=== PATIENT | male | born 1995 | race Caucasian/White ===

== ENCOUNTER 2021-12-23 13:23 | Inpatient (IN) | payer SELFPAY ==
[2021-12-23 13:40] VITALS: BP 126/82; PULSE 121; RESP 18; TEMP 38.6; O2SAT 99; BMI 31.4
--- NOTE | 2021-12-23 14:24 | XR_ITS ---
WS: [id number] Portable AP upright chest, 12/23/2021 Clinical Data: sob Comparison: Portable chest, 08/27/2015. Findings: No nodules, masses or effusions are seen. The heart is normal. The pulmonary vascularity is not increased. No pneumonia or pneumothorax is seen. Monitor leads are on the chest wall. XR/XR chest 1V portable [id number] Impression: Negative chest.
--- NOTE | 2021-12-23 14:24 | CTR_ITS ---
PROCEDURE INFORMATION: Exam: CT Head Without Contrast Exam date and time: 12/23/2021 3:45 PM Age: 26 years old Clinical indication: Pain; Headache not specified; Additional info: LIN TECHNIQUE: Imaging protocol: Computed tomography of the head without contrast. Radiation optimization: All CT scans at this facility use at least one of these dose optimization techniques: automated exposure control; mA and/or kV adjustment per patient size (includes targeted exams where dose is matched to clinical indication); or iterative reconstruction. COMPARISON: CT neck w con* [id number] 08/27/2015 8:24 PM RADIATION DOSE METRICS: Total DLP (mGy-cm): 964.84 FINDINGS: Brain: Normal. No hemorrhage. Unremarkable white matter. No mass effect. Cerebral ventricles: No ventriculomegaly. Paranasal sinuses: Fluid level in the right maxillary sinus. Mild mucosal thickening of the left maxillary sinus. Mastoid air cells: Visualized mastoid air cells are well aerated. Bones/joints: Unremarkable. No acute fracture. Soft tissues: Unremarkable. CT/CT head wo con* [id number] IMPRESSION: 1. No acute intracranial abnormality. 2. Right maxillary sinusitis.
--- NOTE | 2021-12-23 14:25 | ED_ITS ---
HPI - Headache General: Chief Complaint: Headache Stated Complaint: Headaches, hallucinations Time Seen by Provider: 12/23/21 14:19 History of Present Illness: 26-year-old male presents due to headache rash and shortness of breath. States is been ongoing for 6 to 7 days. States he has a diffuse red rash over his entire body. Also states that he has swollen lymph nodes on his neck. Is febrile in triage to 101. Denies any chest pain. States headache is diffuse. Denies any head trauma or blood tenderness. Denies any neck pain. Denies any focal numbness weakness tingling vision or hearing change. Denies any drug use. Review of Systems Narrative: - CONSTITUTIONAL: Denies weight loss, fever and chills. - HEENT: Denies changes in vision and hearing. - RESPIRATORY: As above - CV: Denies palpitations and CP. - GI: Denies abdominal pain, nausea, vomiting and diarrhea. - : Denies dysuria and urinary frequency. - MSK: Denies myalgia and joint pain. - SKIN: As above - NEUROLOGICAL: As above - PSYCHIATRIC: Denies suicidal ideation Physical Exam Narrative: EXAM NARRATIVE: - GENERAL: Alert and oriented x 3. No acute distress. Well-nourished. - EYES: EOMI. Anicteric. - HENT: Atraumatic, no C-spine tenderness. Moist mucous membranes. No scleral icterus. No cervical lymphadenopathy. - LUNGS: Clear to auscultation bilaterally. No accessory muscle use. Equal lung sounds bilaterally. No respiratory distress. - CARDIOVASCULAR: Regular rate and rhythm. No murmur. No JVD. - ABDOMEN: Soft, non-tender and non-distended. Negative CVA tenderness bilaterally, no rebound or guarding, negative Emmanuel sign. No palpable masses. - EXTREMITIES: No edema. Non-tender. - SKIN: Diffuse sandpaperlike rash. No petechiae. - NEUROLOGIC: No meningismus or focal neurological deficits. CN II-XII grossly intact. - PSYCHIATRIC: Cooperative. Appropriate mood and affect. Course Vital Signs: Vital signs: Vital Signs Temperature 101.4 F H 12/23/21 13:40 Pulse Rate 121 H 12/23/21 13:40 Respiratory Rate 18 12/23/21 13:40 Blood Pressure 126/82 12/23/21 13:40 Pulse Oximetry 99 12/23/21 13:40 [facility] - Headache Medical Decision Making 26-year-old presents due to headache shortness of breath and diffuse sand paperlike rash. There is no mucous membrane involvement. There is no meningismus. The rash is Nikolsky negative. Has mild white count elevation of 12. He is febrile to 101 and initially tachycardic to 120s but improved with fluids and Tylenol. CT scan does not reveal any cranial hemorrhage. EKG does not reveal any sign of acute ischemia but initial high-sensitivity troponin is elevated to 108. Aspirin provided. Suspect viral myocarditis. However patient is hemodynamically stable afebrile nontoxic-appearing. Discussed with hospitalist given that he has had symptoms for 1 week probability of meningitis is very low. Will send for blood cultures but will hold off on antibiotics at this time. X-ray does not reveal pneumothorax or consolidation. D-dimer is elevated and CT of the chest is currently pending. Remainder of lab work and imaging reviewed. Discussed with hospitalist and they agreed patient would benefit from admission. Patient admitted in stable condition. Further evaluation management per hospitalist team. Lab Data : 12/23/21 15:20 12/23/21 15:20 Radiology Impressions Chest X-Ray 12/23/21 14:24 Impression: Negative chest. Head CT 12/23/21 14:24 IMPRESSION: 1. No acute intracranial abnormality. 2. Right maxillary sinusitis. Laboratory Results WBC 12.6 10^3/uL (4.0-10.0) H 12/23/21 15:20 RBC 4.66 10^6/uL (4.1-5.3) 12/23/21 15:20 Hgb 13.1 g/dL (11.7-16.6) 12/23/21 15:20 Hct 38.4 % (42.0-52.0) L 12/23/21 15:20 MCV 82.4 fl (80-94) 12/23/21 15:20 MCH 28.1 pg (28.0-34.0) 12/23/21 15:20 MCHC 34.1 g/dL (30.0-36.0) 12/23/21 15:20 RDW 12.0 % (12.1-15.1) L 12/23/21 15:20 Plt Count 242 10^3/cmm (130-400) 12/23/21 15:20 MPV 10.3 fL (7.4-10.4) 12/23/21 15:20 Neut % (Auto) 64.6 % 12/23/21 15:20 Lymph % (Auto) 11.1 % 12/23/21 15:20 [place] % (Auto) 9.1 % 12/23/21 15:20 Eos % (Auto) 14.2 % 12/23/21 15:20 Baso % (Auto) 0.2 % 12/23/21 15:20 Neut # (Auto) 8.14 10^3/uL (1.8-7.7) H 12/23/21 15:20 Lymph # (Auto) 1.4 10^3/uL (0.8-4.8) 12/23/21 15:20 [place] # (Auto) 1.1 10^3/uL (0.2-0.9) H 12/23/21 15:20 Eos # (Auto) 1.8 10^3/uL (0.0-0.8) H 12/23/21 15:20 Baso # (Auto) 0.0 10^3/uL (0.0-0.1) 12/23/21 15:20 Nucleated RBC % (auto) 0 % 12/23/21 15: Nucleated RBCs # 0.0 /100WBC 12/23/21 15:20 D-Dimer 0.81 ug/mIFEU (0-0.59) H 12/23/21 16:24 Sodium 134 mmol/L (136-145) L 12/23/21 15:20 Potassium 3.4 mmol/L (3.5-5.1) L 12/23/21 15:20 Chloride 99 mmol/L (98-107) 12/23/21 15:20 Carbon Dioxide 22 mmol/L (22-29) 12/23/21 15:20 Anion Gap 16.4 (5-19) 12/23/21 15:20 BUN 13 mg/dL (6-20) 12/23/21 15:20 Creatinine 1.0 mg/dL (0.7-1.2) 12/23/21 15:20 GFR Calculation 91.0 mL/min (90-130) 12/23/21 15:20 Glucose 99 mg/dL (65-115) 12/23/21 15:20 Calculated Osmolality 278 mOsm/kg (285-295) L 12/23/21 15:20 Calcium 7.6 mg/dL (8.5-10.5) L 12/23/21 15:20 Total Bilirubin 0.4 mg/dL (0.15-1.2) 12/23/21 15:20 AST 15 U/L (0-40) 12/23/21 15:20 ALT 17 U/L (0-41) 12/23/21 15:20 Alkaline Phosphatase 68 IU/L (40-130) 12/23/21 15:20 Troponin T Baseline 108 ng/L (0-15) H* 12/23/21 15:20 Total Protein 7.3 g/dL (6.6-8.7) 12/23/21 15:20 Albumin 3.9 g/dL (3.5-5.2) 12/23/21 15:20 Globulin 3.4 g/dL (1.3-4.6) 12/23/21 15:20 Urine Color Dark yellow (Yellow) 12/23/21 15:14 Urine Appearance Clear (CLEAR) 12/23/21 15:14 Urine pH 5 (5-7) 12/23/21 15:14 Ur Specific [place] 1.025 (1.005-1.030) 12/23/21 15:14 Urine Protein Trace (Negative) 12/23/21 15:14 Urine Glucose (UA) Norm (Normal) 12/23/21 15:14 Urine Ketones Negative (Negative) 12/23/21 15:14 Urine Blood Neg (Negative) 12/23/21 15:14 Urine Nitrate Negative (Negative) 12/23/21 15:14 Urine Bilirubin Neg (Negative) 12/23/21 15:14 Urine Urobilinogen Norm mg/dL (Negative) 12/23/21 15:14 Ur Leukocyte Esterase Negative (Negative) 12/23/21 15:14 Urine RBC 0-4 /hpf (0-2) H 12/23/21 15:14 Urine WBC Rare /hpf (0-5) 12/23/21 15:14 Ur Squamous Epith Cells 0-4 /hpf (0-5) H 12/23/21 15:14 Amorphous Sediment Not Reportable 12/23/21 15:14 Urine Bacteria 1+ /hpf (NONE) H 12/23/21 15:14 Urine Mucus 1+ /hpf 12/23/21 15:14 Urine Sperm 1+ /hpf 12/23/21 15:14 Urine Opiates Screen Negative ng/mL (Negative) 12/23/21 15:14 Ur Barbiturates Screen Negative ng/mL (Negative) 12/23/21 15:14 Ur Phencyclidine Scrn Negative ng/mL (Negative) 12/23/21 15:14 Ur Amphetamines Screen Negative ng/mL (Negative) 12/23/21 15:14 U Benzodiazepines Scrn Negative ng/mL (Negative) 12/23/21 15:14 Urine Cocaine Screen Negative ng/mL (Negative) 12/23/21 15:14 U Marijuana (THC) Screen Positive ng/mL (Negative) H 12/23/21 15:14 Rubella IgG Antibody > 500.0 IU/mL (0.0-10.0) H 12/23/21 15:20 SARS-CoV-2 Ag (Rapid) Negative (Negative) 12/23/21 15:40 EKG Data EKG 1: Other EKG comments: Sinus tachycardia, rate of 102, no sign of acute ischemia or other acute abnormality. Discharge Plan Discharge Condition: Stable Prescriptions: No Action allopurinol 300 mg Tablet 300 mg PO DAILY 0RF Coding Level of Care Code ED Mold Sheet Cleaner for Tamika Gandara
--- NOTE | 2021-12-23 14:25 | ECG_ITS ---
[facility] Test Date: 2021-12-23 Pat Name: Rio Monk Department: Room: Gender: Male Director Online Marketing: YUMIKO: 1995 Requested By: Ladarius De La Garza Order Number: [id number] Osmany MD: Lizzy Contreras M.D. Measurements Intervals [place] Rate: 102 P: 63 RI: 143 QRS: 77 QRSD: 96 T: 43 QT: 339 QTc: 443 Interpretive Statements SINUS TACHYCARDIA ABNORMAL RHYTHM ECG No previous ECG available for comparison Electronically Signed On 12-23-2021 18:21:27 CDT by Lizzy Contreras M.D. [id number]
[2021-12-23] MEDS: acetaminophen 500 mg Tablet PO (14:58)
--- NOTE | 2021-12-23 15:28 | PC.NURSE ---
continuous cardiac, BP, and SpO2 monitoring initiated upon arrival into room.
[2021-12-23 15:35] LABS: Basophils % 0.2 %; Eosinophils # 1.8 10^3/uL (0.0-0.8); Eosinophils % 14.2 %; Hematocrit 38.4 % (42.0-52.0); Hemoglobin 13.1 g/dL (11.7-16.6); Lymphocytes # 1.4 10^3/uL (0.8-4.8); Lymphocytes % 11.1 %; Mean Corpuscular HGB Conc 34.1 g/dL (30.0-36.0); Mean Corpuscular Hemoglobin 28.1 pg (28.0-34.0); Mean Corpuscular Volume 82.4 fl (80-94); Mean Platelet Volume 10.3 fL (7.4-10.4); Monocytes # 1.1 10^3/uL (0.2-0.9); Monocytes % 9.1 %; Neutrophils # 8.14 10^3/uL (1.8-7.7); Neutrophils % 64.6 %; Nucleated Red Blood Cells % 0 %; Platelet Count 242 10^3/cmm (130-400); Red Blood Count 4.66 10^6/uL (4.1-5.3); White Blood Count 12.6 10^3/uL (4.0-10.0)
[2021-12-23 15:57] LABS: Bacteria Urine 1+ /hpf; Bilirubin Urine Neg (Negative); Blood Urine Neg (Negative); Glucose Urine UA Norm (Normal); Ketones Urine Negative (Negative); Leukocyte Esterase Urine Negative (Negative); Mucus Urine 1+ /hpf; Nitrate Urine Negative (Negative); Protein Urine Trace (Negative); RBC Urine 0-4 /hpf (0-2); Specific Gravity, Urine 1.025 (1.005-1.030); Sperm Urine 1+ /hpf; Squamous Epithelial Cell Urine 0-4 /hpf (0-5); Urine Appearance Clear (CLEAR); Urine Color Dark Yellow (Yellow); Urobilinogen Urine Norm (Negative); WBC Urine RARE /hpf (0-5); pH Urine 5 (5-7)
[2021-12-23 16:01] LABS: Alanine Aminotransferase 17 U/L (0-41); Albumin Level 3.9 g/dL (3.5-5.2); Alkaline Phosphatase 68 IU/L (40-130); Anion Gap 16.4 (5-19); Aspartate Amino Transferase 15 U/L (0-40); Blood Urea Nitrogen 13 mg/dL (6-20); Calcium 7.6 mg/dL (8.5-10.5); Carbon Dioxide 22 mmol/L (22-29); Chloride 99 mmol/L (98-107); Globulin 3.4 g/dL (1.3-4.6); Glucose 99 mg/dL (65-115); Osmolality Calculated 278 mOsm/kg (285-295); Potassium 3.4 mmol/L (3.5-5.1); Sodium 134 mmol/L (136-145); Total Bilirubin 0.4 mg/dL (0.15-1.2); Total Protein 7.3 g/dL (6.6-8.7)
[2021-12-23 16:02] LABS: Troponin(5th) Baseline 108 ng/L (0-15)
[2021-12-23 16:05] LABS: Amphetamines Screen Urine Negative (Negative); Barbiturates Screen Urine Negative (Negative); Benzodiazepines Screen Urine Negative (Negative); Cocaine Screen Urine Negative (Negative); Opiate Screen Urine Negative (Negative); PCP Screen Urine Negative (Negative); THC Screen Urine Positive (Negative)
[2021-12-23] MEDS: sodium chloride 0.9% 1,000 ML 999 ML IV ×2 (16:08→18:13)
[2021-12-23 16:09] LABS: Rubella IgG > 500.0 IU/mL (0.0-10.0); Slide Review Slide Review Perform
[2021-12-23 16:10] LABS: SARS Covid-2 Antigen Negative (Negative)
[2021-12-23 16:57] LABS: D Dimer 0.81 ug/mIFEU (0-0.59)
[2021-12-23] MEDS: aspirin 81 mg Chew Tablet 324 MG PO (17:02)
--- NOTE | 2021-12-23 17:17 | CTR_ITS ---
PROCEDURE INFORMATION: Exam: CTA Chest With Contrast Exam date and time: 12/23/2021 6:03 PM Age: 26 years old Clinical indication: Abnormal findings; Abnormal diagnostic tests; Elevated d-dimer; Patient HX: Chest discomfort w elev d-dimer; Additional info: Pe TECHNIQUE: Imaging protocol: Computed tomographic angiography of the chest with contrast. 3D rendering (Not supervised by radiologist): MIP and/or 3D reconstructed images were created by the technologist. Radiation optimization: All CT scans at this facility use at least one of these dose optimization techniques: automated exposure control; mA and/or kV adjustment per patient size (includes targeted exams where dose is matched to clinical indication); or iterative reconstruction. Contrast material: OMNI 350; Contrast volume: 72 ml; Contrast route: INTRAVENOUS (IV); COMPARISON: CR XR chest 1V portable [id number] 12/23/2021 2:34 PM RADIATION DOSE METRICS: Total DLP (mGy-cm): 647.11 FINDINGS: Pulmonary arteries: Normal. No pulmonary emboli. Aorta: Unremarkable. No aortic aneurysm. No aortic dissection. Lungs: Scattered solid pulmonary nodules noted within both lungs, the largest pleural based nodule in the right lung in the right lower lobe measures 1.2 cm in length series 2, image 330. The largest nodule in the left lung in the left lower lobe measures 8 mm in size series 2, image 337. One of the nodules demonstrates surrounding halo of ground-glass opacity in the right lung apex series 2 image 117. Pleural spaces: Unremarkable. No pneumothorax. No pleural effusion. Heart: Unremarkable. No cardiomegaly. No pericardial effusion. Lymph nodes: Diffuse mediastinal, hilar, and axillary adenopathy. Spleen: Splenomegaly measuring nearly 17 cm in length. Bones/joints: Unremarkable. No acute fracture. Soft tissues: Unremarkable. CT/CT angio chest PE protcl [id number] IMPRESSION: 1. Negative for pulmonary embolism. 2. Scattered solid pulmonary nodules in both lungs measuring up to 1.2 cm on the right and 8 mm on the left. There is also diffuse mediastinal, hilar, and axillary adenopathy as well as splenomegaly. There is a broad range of potential etiologies for the above findings. Categorically the most likely etiologies include a lymphoproliferative process such as lymphoma/leukemia, sequela of granulomatous disease such as sarcoidosis, or an autoimmune process. An additional consideration is infectious mononucleosis which can present with lymphadenopathy and splenomegaly given findings of fever and tonsillitis.
[2021-12-23 17:24] VITALS: PULSE 108; RESP 20; O2SAT 99
--- NOTE | 2021-12-23 18:00 | USCV_ITS ---
Rio Monk Age: 26 Gender: M : 1995 Exam Date: 12/23/2021 23:13 Ordering Phys: Vijay Arias MD Technologist: Puneet Armstrong Exam Location: [facility] Indication: elevated troponin BP: 131 / 71 HR: 103 Rhythm: Sinus Technical Quality: Adequate MEASUREMENTS (Male / Female) Normal Values 2D ECHO LV Diastolic Diameter PLAX 4.3 cm 4.2 - 5.9 / 3.9 - 5.3 cm LV Systolic Diameter PLAX 2.7 cm IVS Diastolic Thickness 1.5 cm 0.6 - 1.0 / 0.6 - 0.9 cm IVS Systolic Thickness 2.0 cm LVPW Diastolic Thickness 2.4 cm 0.6 - 1.0 / 0.6 - 0.9 cm LVPW Systolic Thickness 2.2 cm LVOT Diameter 2.0 cm LV Ejection Fraction 2D Teich 67.9 % LV Ejection Fraction MOD 2C 61.4 % LV Ejection Fraction 2C AL 63.9 % LA Diameter 3.5 cm LA Width 4.3 cm LA Height 3.8 cm RA Width 3.3 cm RA Height 4.1 cm Aorta at Sinotubular Diameter 2.3 cm M-MODE Aortic Annulus Diameter 2.7 cm LA Ao Ratio MM 1.4 MV E Point Septal Separation 0.6 cm DOPPLER AV Peak Velocity 136.0 cm/s LVOT Peak Velocity 117.5 cm/s AV Area Cont Eq vti 2.6 cm squared AV Area Cont Eq pk 2.8 cm squared MV Area PHT 3.9 cm squared Mitral E to A Ratio 1.0 MV E' Velocity 45.0 cm/s Mitral E to MV E' Ratio 5.1 Mitral E to LV E' Lateral Ratio 5.3 Mitral E to LV E' Septal Ratio 4.9 Right Atrial Pressure 3.0 mmHg PV Peak Velocity 119.0 cm/s FINDINGS Left Ventricle Normal left ventricular size, systolic function and wall thickness, with no regional wall motion abnormalities. Left ventricular ejection fraction is estimated at 60 %. Normal diastolic function. Right Ventricle Normal right ventricular size and systolic function. RVSP could not be calculated due to incomplete tricuspid regurgitation velocity profile. Right Atrium Normal right atrial size. Right atrial pressure estimated at 3 mmHg. Left Atrium Normal left atrial size. Mitral Valve Structurally normal mitral valve. No mitral valve stenosis. No mitral valve regurgitation. Aortic Valve Aortic valve not well visualized. Probably trileaflet aortic valve. No aortic valve stenosis. No aortic valve regurgitation. Tricuspid Valve Structurally normal tricuspid valve. Trace tricuspid valve regurgitation. Pulmonic Valve Pulmonic valve not well visualized. No pulmonary valve stenosis. Pericardium No pericardial effusion. Aorta Normal-sized aortic root. Normal-sized inferior vena cava. CONCLUSIONS 1. Normal left ventricular size, systolic function and wall thickness, with no regional wall motion abnormalities. Left ventricular ejection fraction is estimated at 60 %. Normal diastolic function. 2. Normal right ventricular size and systolic function. 3. No significant valvular abnormality. 4. No prior similar studies to compare. Arlette Huff MD (Electronically Signed) Final Date: 24 December 2021 14:09 S
--- NOTE | 2021-12-23 18:02 | P.HP_ITS ---
Providers/Chief Complaint Chief Complaint: Headaches, hallucinations History of Present Illness Rio Monk is a 26 year old male with past medical history of gout came in with chief complaint of worsening headache, started a week back, described the headache as sharp starting from the back of the head, shooting down the neck, lately he also started experiencing nausea, no vomiting, in the last 2 days he has also developed generalized erythematous macular rash, all over the body Which is itchy, in ER his T-max was also at 101.4, denies any shortness of breath cough, abdominal pain, urinary discomfort. Patient denies any drug use, does smoke marijuana, no tobacco's use, no alcohol use Upon arrival in the ER he was worked up for above-mentioned. CT head without contrast: No acute intracranial pathology X-ray chest: No effusion no infiltrate no pneumothorax EKG: Sinus tachycardia CTA chest: No P/E , Scattered solid pulmonary nodules in both lungs measuring up to 1.2 cm on the right and 8 mm on the left. There is also diffuse mediastinal, hilar, and axillary adenopathy as well as splenomegaly. Pertinent labs: WBC 12.6, H&H: 13/38 , plt : 242 , serum sodium 134 serum potassium 3.4 , BUN/SCR : 13/ , Troponin : 108- 103 Review of Systems General: Reports: 10 or more systems reviewed and unremarkable except in HPI and below Narrative: 69-year-old currently not in acute distress being admitted for chest pain evaluation Const: Reports: fever(s), chills and diaphoresis; Denies: body aches or change in appetite Card: Denies: palpitations, edema, swelling of feet/ankles, dyspnea on exertion, orthopnea or leg pain with exertion Resp: Denies: dyspnea, productive cough, wheezing or pain on inspiration GI: Reports: nausea; Denies: abdominal pain, vomiting, diarrhea or constipation : Denies: flank pain or difficulty urinating Musc: Denies: back pain, extremity pain or extremity swelling Neuro: Reports: headache(s) and confusion; Denies: difficulty walking Medications/Allergies Home Medications Medication Instructions Recorded Confirmed Last Taken Type allopurinol 300 mg tablet 300 mg PO DAILY 12/23/21 12/23/21 12/23/21 History Allergies Allergy/AdvReac Type Severity Reaction Status Date / Time No Known Allergies Allergy Verified 12/23/21 14:22 Vitals/I&O/Wt Last Vital Signs Temp 101.4 F H 12/23/21 13:40 Pulse 108 H 12/23/21 17:24 Resp 20 H 12/23/21 17:24 BP 126/82 12/23/21 13:40 Pulse Ox 99 12/23/21 17:24 Weight last 48 hrs Weight 120.202 kg Physical Exam Const: COMMON NORMALS: patient oriented x3 HENMT: COMMON NORMALS: normocephalic and atraumatic HEAD & SCALP: normocephalic and atraumatic Chest: CHEST: Yes Symmetrical chest wall rise Resp: COMMON NORMALS: normal respiratory effort, No retractions, No use of accessory muscles and clear to auscultation bilaterally EFFORT & INSPECTION: Yes symmetric chest movement AUSCULTATION: clear to auscultation bilaterally Cardio: COMMON NORMALS: regular rate, regular rhythm, S1 normal heart sound present, S2 normal heart sound present, No gallops present (Cardio), No murmurs present (Cardio), No rub (Cardio) and Peripheral pulses 2+ throughout RATE: regular rate RHYTHM: regular rhythm HEART SOUNDS: S1 normal heart sound present and S2 normal heart sound present PERIPHERAL PULSES: Peripheral pulses 2+ throughout GI: COMMON NORMALS: Normal to inspection, nondistended, normoactive bowel sounds present, Soft to palpation, non-tender, No hepatosplenomegaly present and no masses AUSCULTATION: Yes normoactive bowel sounds PALPATION: Yes Soft to palpation and Yes No hepatosplenomegaly present RECTAL EXAM: Yes deferred Extremity: COMMON NORMALS: no clubbing, cyanosis or edema and no pedal edema Neuro: COMMON NORMALS: patient oriented x3 Skin: OTHER: Generalized erythematous macular rash. Data : 12/24/21 04:15 12/24/21 04:15 A&P Assessment and plan (1) Myocarditis: Status: Acute (2) Headache: Status: Acute (3) Rash: Status: Acute (4) Fever: Status: Acute (5) Splenomegaly: Status: Acute (6) Elevated troponin: Status: Acute Attestations Medical Necessity Statement*: 26 year old male with past medical history of gout came in with chief complaint of worsening headache, started a week back, described the headache as sharp starting from the back of the head, shooting down the neck, lately he also started experiencing nausea, no vomiting, in the last 2 days he has also developed generalized erythematous macular rash, all over the body. Possible meningitis: CT head without contrast: No acute intracranial pathology MRI brain without contrast Patient is complaining of severe headache, has fever, has rash. No neck stiffness, Blood culture Urine culture Lumbar puncture Will cover Vanco and ceftriaxone, low clinical suspicion for herpes, will hold off on acyclovir for now Do meet criteria for ampicillin Myocarditis: Currently denies any chest pain shortness of breath, has been maintaining good MAP, no edema Follow-up 2D echo Respiratory viral panel negative Elevated troponin: Likely secondary to myocarditis EKG: No acute ST-T wave changes Diffuse mediastinal, hilar, and axillary adenopathy: B symptoms : patient do complain of drenching night sweats, fever, but has not lost any weight Follow CT abdomen and pelvis: Hepatitis B surface antigen negative Hep B core antibody negative Hepatitis a negative Respiratory viral panel negative ESR CRP LDH : Beta-2 microglobulin PAMELA Rheumatoid factor:10 Briseida 1 antibody SSA SSB antibody Anti-smooth antibody PLATE GRAINER APPRENTICE antibody SCL 70 antibody Antidouble-stranded DNA IgG Centomere B antibody Thyroid peroxidase antibody Complement C3c Complement C4 C CH 50 SABINA Level Scattered solid pulmonary nodules in both lungs measuring up to 1.2 cm on the right and 8 mm on the left. Splenomegaly: Time Spent in Patient Care: Greater than 35 minutes (>than 50% of time s pent in counselling and/or direct pt care on unit) . Patient is still in hospital for management of possible meningitis, myocarditis. Anticipated length of stay greater than 2 midnights. Coding Level of Care Code Acute Clothes Drier Repairer for [facility] Fwd Exam Detailed Diagnoses Myocarditis I51.4 Headache R51.9 Rash R21 Fever R50.9 Splenomegaly R16.1 Elevated troponin R77.8
--- NOTE | 2021-12-23 18:04 | ECG_ITS ---
[facility] Test Date: 2021-12-23 Pat Name: Rio Monk Department: Room: Gender: Male Technical Solution Architect: YUMIKO: 1995 Requested By: Ladarius De La Garza Order Number: [id number] Osmany MD: Lizzy Contreras M.D. Measurements Intervals [place] Rate: 104 P: 63 DE: 145 QRS: 82 QRSD: 107 T: 45 QT: 347 QTc: 458 Interpretive Statements SINUS TACHYCARDIA ABNORMAL RHYTHM ECG Compared to ECG 12/23/2021 15:33:22 No significant changes Electronically Signed On 12-23-2021 18:24:49 CDT by Lizzy Contreras M.D. [id number]
[2021-12-23] MEDS: iohexol 350 mg/mL 100 mL Btl IV (18:10)
[2021-12-23] MEDS: diphenhydrAMINE 50 mg/mL SDV 1mL 25 MG IVP (18:16)
[2021-12-23] MEDS: metoclopramide 5 mg/mL SDV 2 mL 10 MG IVP (18:17)
[2021-12-23 18:19] LABS: Troponin 5 2HR Delta -4.8 ABS# (0-10)
[2021-12-23 18:20] LABS: Troponin 5 2HR 103.2 ng/L (0-15)
[2021-12-23] MEDS: enoxaparin 40 mg/0.4 mL Syringe SUBCUT (18:20)
[2021-12-23 18:44] VITALS: BP 141/80; PULSE 107; RESP 18; O2SAT 100
[2021-12-23 18:50] VITALS: BMI 33.3
[2021-12-23] MEDS: famotidine 20 mg/2 mL INJ IVP (19:06)
[2021-12-23] MEDS: sodium chloride 0.9% 1,000 ML 75 ML IV (19:06)
[2021-12-23] MEDS: acetaminophen 325 mg Tablet 650 MG PO (19:14)
[2021-12-23 20:00] VITALS: BP 131/71; PULSE 106; RESP 20; TEMP 38.2; O2SAT 98
[2021-12-23 20:36] VITALS: PULSE 108; O2SAT 98
[2021-12-23 20:51] LABS: Adenovirus Not Detected (NOT DETECT); Chlamydia Pneumoniae Not Detected (NOT DETECT); Coronavirus 229E,HKU1,NL63,OC4 Not Detected (NOT DETECT); Human Metapneumovirus Not Detected (NOT DETECT); Human Rhinovirus/Enterovirus Not Detected (NOT DETECT); Influenza A Not Detected (NOT DETECT); Influenza A H1 Not Detected (NOT DETECT); Influenza A H1-2009 Not Detected (NOT DETECT); Influenza A H3 Not Detected (NOT DETECT); Influenza B Not Detected (NOT DETECT); Mycoplasma Pneumoniae Not Detected (NOT DETECT); Parainfluenza Virus Type 1 Not Detected (NOT DETECT); Parainfluenza Virus Type 2 Not Detected (NOT DETECT); Parainfluenza Virus Type 3 Not Detected (NOT DETECT); Parainfluenza Virus Type 4 Not Detected (NOT DETECT); Respiratory Syncytial Virus A Not Detected (NOT DETECT); Respiratory Syncytial Virus B Not Detected (NOT DETECT); SARS-COV-2 Not Detected (NOT DETECT)
[2021-12-23 22:00] VITALS: PULSE 105
--- NOTE | 2021-12-23 22:04 | ECG_ITS ---
[facility] Test Date: 2021-12-23 Pat Name: Rio Monk Department: Room: 250 Gender: Male Fine Arts Packer: YUMIKO: 1995 Requested By: Ladarius De La Garza Order Number: [id number] Osmany MD: Arlette Huff M.D. Measurements Intervals [place] Rate: 102 P: 58 MO: 128 QRS: 70 QRSD: 103 T: 43 QT: 345 QTc: 451 Interpretive Statements SINUS TACHYCARDIA Compared to ECG 12/23/2021 17:49:41 No significant changes Electronically Signed On 12-24-2021 15:13:30 CDT by Arlette Huff M.D. [id number]
[2021-12-23 22:05] LABS: Troponin 5 6HR 88.95 ng/L (0-15)
[2021-12-23] MEDS: diphenhydrAMINE 50 mg Capsule PO (22:12)
[2021-12-23 22:31] LABS: Hepatitis B Core AB, Total Non-Reactive (Nonreactive); Hepatitis B Surface Antigen Non-Reactive (Nonreactive); Hepatitis C Virus Antibody Non-Reactive (Nonreactive)
[2021-12-24] VITALS (11 sets, daily range): BP systolic 115–151; BP diastolic 72–90; PULSE 98–108; RESP 17–19; TEMP 37.1–38.9; O2SAT 96–98
[2021-12-24] MEDS: acetaminophen 325 mg Tablet 650 MG PO ×3 (00:12→16:33)
[2021-12-24] MEDS: famotidine 20 mg/2 mL INJ IVP ×2 (05:31→19:43)
[2021-12-24 05:50] LABS: Basophils % 0.2 %; Eosinophils # 2.3 10^3/uL (0.0-0.8); Eosinophils % 20.9 %; Hematocrit 38.8 % (42.0-52.0); Hemoglobin 12.8 g/dL (11.7-16.6); Lymphocytes # 1.9 10^3/uL (0.8-4.8); Lymphocytes % 17.4 %; Mean Corpuscular Hemoglobin 27.8 pg (28.0-34.0); Mean Corpuscular Volume 84.3 fl (80-94); Mean Platelet Volume 10.9 fL (7.4-10.4); Monocytes # 0.9 10^3/uL (0.2-0.9); Monocytes % 8.5 %; Neutrophils # 5.77 10^3/uL (1.8-7.7); Neutrophils % 52.3 %; Nucleated Red Blood Cells % 0 %; Platelet Count 217 10^3/cmm (130-400); Red Cell Distribution Width 12.2 % (12.1-15.1)
[2021-12-24 05:58] LABS: Erythrocyte Sedimentation Rate 29 mm/hr (0-10)
[2021-12-24 06:11] LABS: Lactic Sepsis W/Reflex 1.1 mmol/L (0.5-2.2)
[2021-12-24 06:18] LABS: Procalcitonin 0.37 ng/mL (0-0.5); Thyroid Stimulating Hormone 4.46 uIU/mL (0.27-4.20)
[2021-12-24 06:25] LABS: INR 1.18 (0.8-1.2)
[2021-12-24 06:29] LABS: Alanine Aminotransferase 14 U/L (0-41); Albumin Level 3.5 g/dL (3.5-5.2); Alkaline Phosphatase 64 IU/L (40-130); Anion Gap 16.1 (5-19); Aspartate Amino Transferase 12 U/L (0-40); Blood Urea Nitrogen 10 mg/dL (6-20); C Reactive Protein 74.9 mg/L (0.0-4.9); Calcium 7.6 mg/dL (8.5-10.5); Carbon Dioxide 22 mmol/L (22-29); Chloride 102 mmol/L (98-107); Creatinine Clr Calc Pharmacy 151.7338; Globulin 3.7 g/dL (1.3-4.6); Glomerular Filtration Rate 81.6 mL/min (90-130); Glucose 95 mg/dL (65-115); Lactate Dehydrogenase 274 U/L (135-225); Osmolality Calculated 283 mOsm/kg (285-295); Potassium 3.1 mmol/L (3.5-5.1); Sodium 137 mmol/L (136-145); Total Bilirubin 0.4 mg/dL (0.15-1.2); Total Protein 7.2 g/dL (6.6-8.7)
[2021-12-24 07:31] LABS: Slide Review Slide Review Perform
--- NOTE | 2021-12-24 09:00 | CTR_ITS ---
PROCEDURE INFORMATION: Exam: CT Abdomen And Pelvis With Contrast Exam date and time: 12/24/2021 2:25 PM Age: 26 years old Clinical indication: Other: Splenomegaly, lymphadenopathy TECHNIQUE: Imaging protocol: Computed tomography of the abdomen and pelvis with contrast. Axial, coronal and sagittal reformatted images were created and reviewed. Radiation optimization: All CT scans at this facility use at least one of these dose optimization techniques: automated exposure control; mA and/or kV adjustment per patient size (includes targeted exams where dose is matched to clinical indication); or iterative reconstruction. Contrast material: OMNI 300; Contrast volume: 95 ml; Contrast route: INTRAVENOUS (IV); COMPARISON: CT abdomen pelvis w con* [id number] 08/27/2015 8:19 PM RADIATION DOSE METRICS: Total DLP (mGy-cm): 1963.69 FINDINGS: Lungs: Multiple bibasilar pulmonary nodular densities, measuring up to 8 mm in the left lower lobe. Liver: Mild hepatomegaly. Diffuse hepatic steatosis. Gallbladder and bile ducts: No radiodense gallstones. No biliary ductal dilatation. Pancreas: Unremarkable. Spleen: Moderate splenomegaly. Adrenal glands: Normal. No mass. Kidneys and ureters: No mass. No radiodense calculi. No hydronephrosis. Stomach and bowel: No bowel wall thickening. No obstruction. No pneumatosis. Appendix: Normal. Intraperitoneal space: No free fluid. No organized fluid collection. No free air. Arteries: Unremarkable. No abdominal aortic aneurysm. Lymph nodes: Mildly enlarged upper abdominal and mesenteric lymph nodes, measuring up to approximately 4.4 x 1.6 cm in the portacaval region. Multiple mildly prominent retroperitoneal lymph nodes, measuring up to 1.4 x 1.3 cm in the left preaortic region. Enlarged bilateral external iliac lymph nodes, measuring up to 3.1 x 2.8 cm on the right. Mildly prominent bilateral inguinal lymph nodes, measuring up to 2.1 x 1.4 cm on the right. Urinary bladder: Mild circumferential urinary bladder wall thickening, likely secondary to underdistention. Reproductive: Unremarkable. Bones/joints: No acute osseous abnormality. Soft tissues: Unremarkable. CT/CT abdomen pelvis w con* [id number] IMPRESSION: 1. Hepatosplenomegaly and diffuse hepatic steatosis. 2. Nonspecific lymphadenopathy, as described above. 3. Multiple bibasilar pulmonary nodular densities, measuring up to 8 mm in the left lower lobe. 4. Additional findings, as above.
[2021-12-24] MEDS: iohexol 300 mg/mL 100 mL Btl IV (14:25)
[2021-12-24] MEDS: iohexol 300 mg/mL 50 mL Btl PO (14:26)
--- NOTE | 2021-12-24 14:31 | P.PN_ITS ---
Subjective Subjective: Patient was seen and examined this morning continues to complain of headache, noted T-max 102.0 Generalized papular erythematous rash has not progressed. Medications: Medication Review Details: Generic Name Dose Route Start Last Admin Trade Name Gage PRN Reason Stop Dose Admin Acetaminophen 650 mg 12/23/21 17:56 12/24/21 07:12 Acetaminophen 32 5 Mg Tablet PO 650 mg Q6H PRN Administration Mild/Mod Pain Or Temp >/= 101 Diphenhydramine HC l 50 mg 12/23/21 18:15 12/23/21 22:12 Diphenhydramine 50 Mg Capsule PO 50 mg Q4H PRN Administration ITCHING Enoxaparin Sodium 40 mg 12/23/21 18:00 12/23/21 18:20 Enoxaparin 40 Mg /0.4 Ml Syringe SUBCUT 40 mg Q24H SUJATA Administration Famotidine 20 mg 12/23/21 18:30 12/24/21 05:31 Famotidine 20 Mg /2 Ml Inj IVP 20 mg Q12H SUJATA Administration Sodium Chloride 1,000 mls @ 75 ml s/hr 12/23/21 18:00 12/23/21 19:06 Sodium Chloride 0.9% IV 75 mls/hr .[id number] SUJATA Administration Vitals/I&O/Wt Last Vital Signs Temp 102.0 F H 12/24/21 12:00 Pulse 104 H 12/24/21 12:00 Resp 18 12/24/21 12:00 BP 151/79 12/24/21 12:00 Pulse Ox 98 12/24/21 12:00 12/23/21 12/24/21 12/24/21 22:59 06:59 14:59 Intake Total 1999 400 / 2400 720 / 720 Output Total 0 / 0 Balance 1999 400 / 2400 720 / 720 Weight last 48 hrs Weight 127.596 kg Weight 127.459 kg Weight 120.202 kg Physical Exam Const: COMMON NORMALS: patient oriented x3 HENMT: COMMON NORMALS: normocephalic and atraumatic HEAD & SCALP: normoceph alic and atraumatic Chest: CHEST: Yes Symmetrical chest wall rise Resp: COMMON NORMALS: normal respiratory effort, No retractions, No use of accessory muscles and clear to auscultation bilaterally EFFORT & INSPECTION: Yes symmetric chest movement AUSCULTATION: clear to auscultation bilaterally Cardio: COMMON NORMALS: regular rate, regular rhythm, S1 normal heart sound present, S2 normal heart sound present, No gallops present (Cardio), No murmurs present (Cardio), No rub (Cardio) and Peripheral pulses 2+ throughout RATE: regular rate RHYTHM: regular rhythm HEART SOUNDS: S1 normal heart sound present and S2 normal heart sound present PERIPHERAL PULSES: Peripheral pulse s 2+ throughout GI: COMMON NORMALS: Normal to inspection, nondistended, normoactive bowel sounds present, Soft to palpation, non-tender, No hepatosplenomegaly present and no masses AUSCULTATION: Yes normoactive bowel sounds PALPATION: Yes Soft to palpation and Yes No hepatosplenomegaly present RECTAL EXAM: Yes deferred Extremity: COMMON NORMALS: no clubbing, cyanosis or edema and no pedal edema Neuro: COMMON NORMALS: patient oriented x3 Skin: OTHER: Generalized erythematous macular rash. Data : 12/24/21 04:15 12/25/21 05:30 Micro: Microbiology 12/23/21 17:54 Blood Culture - Preliminary Blood SPECIMEN COLLECTED 12/23/21 17:47 Blood Culture - Preliminary Blood SPECIMEN COLLECTED A&P Assessment and plan (1) Myocarditis: Status: Acute (2) Headache: Status: Acute (3) Rash: Status: Acute (4) Fever: Status: Acute (5) Splenomegaly: Status: Acute (6) Elevated troponin: Status: Acute Plan 26 year old male with past medical history of gout came in with chief complaint of worsening headache, started a week back, described the headache as sharp starting from the back of the head, shooting down the neck, lately he also started experiencing nausea, no vomiting, in the last 2 days he has also developed generalized erythematous macular rash, all over the body. Possible meningitis: CT head without contrast: No acute intracranial pathology MRI brain without contrast: Patient is complaining of severe headache, has fever, has rash. No neck stiffness, Blood culture Urine culture Lumbar puncture Will cover Vanco and ceftriaxone, low clinical suspicion for herpes, will hold off on acyclovir for now Do meet criteria for ampicillin Myocarditis: Currently denies any chest pain shortness of breath, has been maintaining good MAP, no edema Follow-up 2D echo Respiratory viral panel negative Elevated troponin: Likely secondary to myocarditis EKG: No acute ST-T wave changes. 2 D Echo: Normal LV size and systolic function and wall thickness,no RWMA, LVEF 60%, normal diastolic function Normal RV size and systolic function. Diffuse mediastinal, hilar, and axillary adenopathy: B symptoms : patient do complain of drenching night sweats, fever, but has not lost any weight Follow CT abdomen and pelvis: Hepatitis B surface antigen negative Hep B core antibody negative Hepatitis a negative Respiratory viral panel negative ESR CRP LDH : Beta-2 microglobulin PAMELA Rheumatoid factor:10 Briseida 1 antibody SSA SSB antibody Anti-smooth antibody NAIL MAKER antibody SCL 70 antibody Antidouble-stranded DNA IgG Centomere? B antibody Thyroid peroxidase antibody Complement C3c Complement C4 C CH 50 SABINA Level Scattered solid pulmonary nodules in both lungs measuring up to 1.2 cm on the right and 8 mm on the left. Splenomegaly: Attestations Medical Necessity Statement*: Patient is still in hospital for management of above defined problems. Time Spent in Patient Care: Greater than 35 minutes (>than 50% of time spent in counselling and/or direct pt care on unit) . Coding Level of Care Code Acute Evaluation Specialist for [facility] Fwd Exam Detailed Diagnoses Myocarditis I51.4 Headache R51.9 Rash R21 Fever R50.9 Splenomegaly R16.1 Elevated troponin R77.8
[2021-12-24] MEDS: cefTRIAXone 2,000 MG in sodium chloride 0.9% (plus) 50 ML 100 MG IV (15:30)
[2021-12-24] MEDS: vancomycin 1,500 MG/300 ML PIGGYBACK 200 MG IV (16:50)
[2021-12-24] MEDS: enoxaparin 40 mg/0.4 mL Syringe SUBCUT (18:30)
--- NOTE | 2021-12-24 19:27 | PC.NURSE ---
Notified Dr. Hernandez of patient temp being elevated of 101.9 and 102.0 at 12:00. Now it is 100.8. I am going to give him some Tylenol and recheck. Recheck was 98.[address] Hernandez came and talked with patient
[2021-12-24] MEDS: diphenhydrAMINE 50 mg Capsule PO (19:43)
[2021-12-24] MEDS: ondansetron 2 mg/ML SDV 2 mL 4 MG IVP (22:46)
[2021-12-24] MEDS: sodium chloride 0.9% 1,000 ML 75 ML IV (22:51)
[2021-12-25] VITALS (9 sets, daily range): BP systolic 128–155; BP diastolic 74–84; PULSE 88–103; RESP 17–24; TEMP 36.8–38.3; O2SAT 93–98
[2021-12-25] MEDS: vancomycin 1,500 MG/300 ML PIGGYBACK 200 MG IV ×3 (00:25→19:03)
[2021-12-25] MEDS: cefTRIAXone 2,000 MG in sodium chloride 0.9% (plus) 50 ML 100 MG IV ×2 (02:33→14:37)
[2021-12-25] MEDS: acetaminophen 325 mg Tablet 650 MG PO ×2 (02:33→17:01)
[2021-12-25 06:03] LABS: Basophils # 0.1 10^3/uL (0.0-0.1); Basophils % 0.4 %; Eosinophils # 2.8 10^3/uL (0.0-0.8); Eosinophils % 23.9 %; Hematocrit 36.7 % (42.0-52.0); Hemoglobin 12.4 g/dL (11.7-16.6); Lymphocytes # 2.4 10^3/uL (0.8-4.8); Lymphocytes % 20.5 %; Mean Corpuscular HGB Conc 33.8 g/dL (30.0-36.0); Mean Corpuscular Volume 82.8 fl (80-94); Mean Platelet Volume 10.8 fL (7.4-10.4); Monocytes # 0.6 10^3/uL (0.2-0.9); Monocytes % 5.5 %; Neutrophils # 5.72 10^3/uL (1.8-7.7); Neutrophils % 48.8 %; Nucleated Red Blood Cells % 0 %; Platelet Count 181 10^3/cmm (130-400); Red Blood Count 4.43 10^6/uL (4.1-5.3); Red Cell Distribution Width 12.2 % (12.1-15.1); White Blood Count 11.7 10^3/uL (4.0-10.0)
[2021-12-25] MEDS: diphenhydrAMINE 50 mg Capsule PO ×2 (06:10→11:53)
[2021-12-25 06:22] LABS: Alanine Aminotransferase 11 U/L (0-41); Albumin Level 3.2 g/dL (3.5-5.2); Alkaline Phosphatase 54 IU/L (40-130); Anion Gap 14.2 (5-19); Aspartate Amino Transferase 11 U/L (0-40); Blood Urea Nitrogen 8 mg/dL (6-20); Calcium 7.4 mg/dL (8.5-10.5); Carbon Dioxide 22 mmol/L (22-29); Chloride 102 mmol/L (98-107); Creatine Phosphokinase 72 U/L (39-308); Globulin 3.6 g/dL (1.3-4.6); Glomerular Filtration Rate 102.8 mL/min (90-130); Glucose 86 mg/dL (65-115); Osmolality Calculated 278 mOsm/kg (285-295); Potassium 3.2 mmol/L (3.5-5.1); Sodium 135 mmol/L (136-145); Total Bilirubin 0.3 mg/dL (0.15-1.2); Total Protein 6.8 g/dL (6.6-8.7)
--- NOTE | 2021-12-25 06:47 | P.PN_ITS ---
Subjective Subjective: Patient was seen and examined this morning continues to complain of headache, though slightly better than yesterday , noted T-max:101. Erythematous rash is improving. Medications: Medication Review Details: Generic Name Dose Route Start Last Admin Trade Name Freq PRN Reason Stop Dose Admin Acetaminophen 650 mg 12/23/21 17:56 12/24/21 07:12 Acetaminophen 32 5 Mg Tablet PO 650 mg Q6H PRN Administration Mild/Mod Pain Or Temp >/= 101 Diphenhydramine HC l 50 mg 12/23/21 18:15 12/23/21 22:12 Diphenhydramine 50 Mg Capsule PO 50 mg Q4H PRN Administration ITCHING Enoxaparin Sodium 40 mg 12/23/21 18:00 12/23/21 18:20 Enoxaparin 40 Mg /0.4 Ml Syringe SUBCUT 40 mg Q24H SUJATA Administration Famotidine 20 mg 12/23/21 18:30 12/24/21 05:31 Famotidine 20 Mg /2 Ml Inj IVP 20 mg Q12H SUJATA Administration Sodium Chloride 1,000 mls @ 75 ml s/hr 12/23/21 18:00 12/23/21 19:06 Sodium Chloride 0.9% IV 75 mls/hr .[id number] SUJATA Administration Vitals/I&O/Wt Last Vital Signs Temp 98.5 F 12/25/21 04:00 Pulse 92 12/25/21 04:35 Resp 17 12/25/21 00:00 BP 155/74 12/25/21 04:00 Pulse Ox 93 12/25/21 04:00 12/24/21 12/24/21 12/25/21 14:59 22:59 06:59 Intake Total 1720 / 1720 1190 / 2910 590 / 3500 Balance 1720 / 1720 1190 / 2910 590 / 3500 Weight last 48 hrs Weight 127.596 kg Weight 127.459 kg Weight 120.202 kg Physical Exam Const: COMMON NORMALS: patient oriented x3 HENMT: COMMON NORMALS: normocephalic and atraumatic HEAD & SCALP: normocephalic and atraumatic Chest: CHEST: Yes Symmetrical chest wall rise Resp: COMMON NORMALS: normal respiratory effort, No retractions, No use of accessory muscles and clear to auscultation bilaterally EFFORT & INSPECTION: Yes symmetric chest movement AUSCULTATION: clear to auscultation bilaterally Cardio: COMMON NORMALS: regular rate, regular rhythm, S1 normal heart sound present, S2 normal heart sound present, No gallops present (Cardio), No murmurs present (Cardio), No rub (Cardio) and Peripheral pulses 2+ throughout RATE: regular rate RHYTHM: regular rhythm HEART SOUNDS: S1 normal heart sound present and S2 normal heart sound present PERIPHERAL PULSES: Peripheral pulses 2+ throughout GI: COMMON NORMALS: Normal to inspection, nondistended, normoactive bowel sounds present, Soft to palpation, non-tender, No hepatosplenomegaly present and no masses AUSCULTATION: Yes normoactive bowel sounds PALPATION: Yes Soft to palpation and Yes No hepatosplenomegaly present RECTAL EXAM: Yes deferred Extremity: COMMON NORMALS: no clubbing, cyanosis or edema and no pedal edema Neuro: COMMON NORMALS: patient oriented x3 Skin: OTHER: Generalized erythematous macular rash. Data : 12/25/21 05:30 12/25/21 05:30 Micro: Microbiology 12/23/21 17:54 Blood Culture - Preliminary Blood NEGATIVE TO DATE 12/23/21 17:47 Blood Culture - Preliminary Blood NEGATIVE TO DATE A&P Assessment and plan (1) Myocarditis: Status: Acute (2) Headache: Status: Acute (3) Rash: Status: Acute (4) Fever: Status: Acute (5) Splenomegaly: Status: Acute (6) Elevated troponin: Status: Acute Plan 26 year old male with past medical history of gout came in with chief complaint of worsening headache, started a week back, described the headache as sharp starting from the back of the head, shooting down the neck, lately he also started experiencing nausea, no vomiting, in the last 2 days he has also developed generalized erythematous macular rash, all over the body. Possible meningitis: CT head without contrast: No acute intracranial pathology MRI brain without contrast: Patient is complaining of severe headache, has fever, has rash. No neck stiffness, Blood culture:Negative Urine culture Lumbar puncture Will cover Vanco and ceftriaxone, low clinical suspicion for herpes, will hold off on acyclovir for now Do meet criteria for ampicillin. Myocarditis: Currently denies any chest pain shortness of breath, has been maintaining good MAP, no edema Follow-up 2D echo Respiratory viral panel: Rubeola (measles ) : Pending Elevated troponin: Likely secondary to myocarditis EKG: No acute ST-T wave changes. 2 D Echo: Normal LV size and systolic function and wall thickness,no RWMA, LVEF 60%, normal diastolic function Normal RV size and systolic function. Diffuse mediastinal, hilar, and axillary adenopathy: B symptoms : patient do complain of drenching night sweats, fever, but has not lost any weight CT abdomen and pelvis:Hepatosplenomegaly and diffuse hepatic steatosis. CT spine: No acute findings Hepatitis B surface antigen negative Hep B core antibody negative Hepatitis a negative Hepatitis C antibody negative Respiratory viral panel negative ESR:29 CRP:74 LDH :274 Beta-2 microglobulin: PAMELA Rheumatoid factor:10 Briseida 1 antibody SSA SSB antibody Anti-smooth antibody F[employer] antibody SCL 70 antibody Antidouble-stranded DNA IgG Centomere? B antibody Thyroid peroxidase antibody Complement C3c Complement C4 C CH 50 SABINA Level. AFP HCG CMV IgG and IgM panel EBV IgG and IgM HIV 1 and 2 antigen and antibody Rubeola IgG antibody greater than 500 COVID-19 negative Oncology on board. Curbside discussion with pulmonology. Possibly will need surgery for biopsy. Scattered solid pulmonary nodules in both lungs measuring up to 1.2 cm on the right and 8 mm on the left. Splenomegaly: Attestations Medical Necessity Statement*: Patient is still in hospital for management of above defined problems. Time Spent in Patient Care: Greater than 35 minutes (>than 50% of time spent in counselling and/or direct pt care on unit) . Coding Level of Care Code Acute Drill Setup Operator for [facility] Fwd Exam Detailed Diagnoses Myocarditis I51.4 Headache R51.9 Rash R21 Fever R50.9 Splenomegaly R16.1 Elevated troponin R77.8
[2021-12-25 07:09] LABS: Slide Review Slide Review Perform
[2021-12-25] MEDS: famotidine 20 mg/2 mL INJ IVP ×2 (09:41→16:46)
[2021-12-25] MEDS: oxyCODONE-APAP 5-325 mg Tablet 1 TAB PO ×2 (09:42→21:21)
--- NOTE | 2021-12-25 10:01 | CTR_ITS ---
PROCEDURE INFORMATION: Exam: CT Lumbar Spine Without Contrast Exam date and time: 12/25/2021 2:52 PM Age: 26 years old Clinical indication: Other: Fever; Patient HX: Fuo- rash - swollen lymph nodes TECHNIQUE: Imaging protocol: Computed tomography images of the lumbar spine without contrast. Radiation optimization: All CT scans at this facility use at least one of these dose optimization techniques: automated exposure control; mA and/or kV adjustment per patient size (includes targeted exams where dose is matched to clinical indication); or iterative reconstruction. COMPARISON: CT thoracic spin wo con* [id number] 12/25/2021 2:49 PM RADIATION DOSE METRICS: Total DLP (mGy-cm): 1859.82 FINDINGS: Vertebrae: No acute fracture. Normal alignment. Discs/Spinal canal/Neural foramina: Mild L5-S1 posterior disc bulge creating anterior impression upon the thecal sac. Moderate posterior L4-L5 disc bulge with short pedicles with mild central spinal stenosis and bilateral lateral recess stenosis. Mild L3-L4 posterior disc bulge with borderline to mild central spinal stenosis. Lymph nodes: 1.3 cm left para-aortic lymph node consistent with mild nonspecific periaortic lymphadenopathy. Soft tissues: Unremarkable. CT/CT lumbar spine wo con* [id number] IMPRESSION: 1. Mild L5-S1 posterior disc bulge creating anterior impression upon the thecal sac. 2. Moderate posterior L4-L5 disc bulge with short pedicles with mild central spinal stenosis and bilateral lateral recess stenosis. 3. Mild L3-L4 posterior disc bulge with borderline to mild central spinal stenosis. 4. 1.3 cm left para-aortic lymph node consistent with mild nonspecific periaortic lymphadenopathy.
--- NOTE | 2021-12-25 10:01 | CTR_ITS ---
PROCEDURE INFORMATION: Exam: CT Thoracic Spine Without Contrast Exam date and time: 12/25/2021 2:49 PM Age: 26 years old Clinical indication: Other: Fever; Patient HX: Fuo- rash - swollen lymph nodes TECHNIQUE: Imaging protocol: Computed tomography images of the thoracic spine without contrast. Radiation optimization: All CT scans at this facility use at least one of these dose optimization techniques: automated exposure control; mA and/or kV adjustment per patient size (includes targeted exams where dose is matched to clinical indication); or iterative reconstruction. COMPARISON: CT cervical spin wo con* [id number] 12/25/2021 2:46 PM RADIATION DOSE METRICS: Total DLP (mGy-cm): 2384.38 FINDINGS: Vertebrae: Minimal dextroscoliosis. Multiple small Schmorl's nodes in the vertebral body endplates throughout the thoracic spine. 1.9 cm short axis pretracheal lymph node. 2.0 cm short axis right subcarinal lymph node. Discs/Spinal canal/Neural foramina: No significant disc protrusion. No severe spinal canal stenosis. No significant neural foraminal narrowing. Soft tissues: Unremarkable. Lymph nodes: 2.2 cm short axis aortopulmonary window lymph node. [id number] mediastinal adenopathy consistent with infectious process versus autoimmune process versus lymphoma. CT/CT thoracic spin wo con* [id number] IMPRESSION: 1. [id number] mediastinal adenopathy consistent with infectious process versus autoimmune process versus lymphoma. 2. No acute spine findings.
--- NOTE | 2021-12-25 10:01 | CTR_ITS ---
PROCEDURE INFORMATION: Exam: CT Cervical Spine Without Contrast Exam date and time: 12/25/2021 2:46 PM Age: 26 years old Clinical indication: Neck pain; Patient HX: Fuo - rash - swollen lymph node; Additional info: Fever TECHNIQUE: Imaging protocol: Computed tomography images of the cervical spine without contrast. Radiation optimization: All CT scans at this facility use at least one of these dose optimization techniques: automated exposure control; mA and/or kV adjustment per patient size (includes targeted exams where dose is matched to clinical indication); or iterative reconstruction. COMPARISON: CT neck w con* [id number] 08/27/2015 8:24 PM RADIATION DOSE METRICS: Total DLP (mGy-cm): 683.85 FINDINGS: Bones/joints: No acute fracture. Normal alignment. Discs/Spinal canal/Neural foramina: No significant disc protrusion. No severe spinal canal stenosis. No significant neural foraminal narrowing. Sinuses: Moderate right maxillary sinus disease. Lungs: Lung apices are normal. Lymph nodes: [id number] bilateral submandibular and cervical adenopathy including right base of the neck adenopathy most consistent with reactive adenopathy from infection versus autoimmune process. Neoplasm is considered less likely. Soft tissues: Unremarkable. CT/CT cervical spin wo con* [id number] IMPRESSION: 1. Moderate right maxillary sinus disease. 2. [id number] bilateral submandibular and cervical adenopathy including right base of the neck adenopathy most consistent with reactive adenopathy from infection versus autoimmune process. Neoplasm is considered less likely.
[2021-12-25] MEDS: enoxaparin 40 mg/0.4 mL Syringe SUBCUT (16:46)
[2021-12-25 16:47] LABS: Vancomycin Trough 14.8 ug/mL (10-15)
[2021-12-25] MEDS: ondansetron 2 mg/ML SDV 2 mL 4 MG IVP (21:09)
[2021-12-26] VITALS (8 sets, daily range): BP systolic 129–160; BP diastolic 72–78; PULSE 94–106; RESP 14–20; TEMP 36.8–37.9; O2SAT 92–97
[2021-12-26] MEDS: vancomycin 1,500 MG/300 ML PIGGYBACK 200 MG IV ×2 (02:19→10:17)
[2021-12-26] MEDS: oxyCODONE-APAP 5-325 mg Tablet 1 TAB PO (03:16)
[2021-12-26] MEDS: ondansetron 2 mg/ML SDV 2 mL 4 MG IVP ×2 (03:16→12:57)
[2021-12-26 05:05] LABS: Basophils % 0.3 %; Eosinophils # 2.9 10^3/uL (0.0-0.8); Eosinophils % 20.6 %; Hematocrit 35.1 % (42.0-52.0); Hemoglobin 11.8 g/dL (11.7-16.6); Lymphocytes # 2.3 10^3/uL (0.8-4.8); Lymphocytes % 16.6 %; Mean Corpuscular HGB Conc 33.6 g/dL (30.0-36.0); Mean Corpuscular Hemoglobin 27.9 pg (28.0-34.0); Mean Platelet Volume 10.8 fL (7.4-10.4); Monocytes # 0.8 10^3/uL (0.2-0.9); Monocytes % 5.4 %; Neutrophils # 7.87 10^3/uL (1.8-7.7); Neutrophils % 56.2 %; Nucleated Red Blood Cells % 0 %; Platelet Count 84 10^3/cmm (130-400); Red Blood Count 4.23 10^6/uL (4.1-5.3); Red Cell Distribution Width 12.4 % (12.1-15.1)
[2021-12-26 05:23] LABS: Alanine Aminotransferase 18 U/L (0-41); Albumin Level 3.1 g/dL (3.5-5.2); Alkaline Phosphatase 57 IU/L (40-130); Anion Gap 13.3 (5-19); Aspartate Amino Transferase 24 U/L (0-40); Blood Urea Nitrogen 7 mg/dL (6-20); Calcium 8.3 mg/dL (8.5-10.5); Carbon Dioxide 22 mmol/L (22-29); Chloride 102 mmol/L (98-107); Globulin 4.5 g/dL (1.3-4.6); Glomerular Filtration Rate 102.8 mL/min (90-130); Glucose 99 mg/dL (65-115); HCG Tumor Marker 1 mIU/mL (0-3); Osmolality Calculated 276 mOsm/kg (285-295); Potassium 3.3 mmol/L (3.5-5.1); Sodium 134 mmol/L (136-145); Total Bilirubin 0.5 mg/dL (0.15-1.2); Total Protein 7.6 g/dL (6.6-8.7)
[2021-12-26 05:30] LABS: Slide Review Slide Review Perform
[2021-12-26 05:35] LABS: HIV 1 & 2 Antibody Non-Reactive (Non-Reactiv); HIV 1 & 2 Antigen Non-Reactive (Non-Reactiv)
[2021-12-26] MEDS: cefTRIAXone 2,000 MG in sodium chloride 0.9% (plus) 50 ML 100 MG IV (06:15)
[2021-12-26 06:18] LABS: Tumor Marker Alpha Fetoprotein 2.1 ng/mL (0-8.3)
[2021-12-26] MEDS: famotidine 20 mg/2 mL INJ IVP (06:33)
[2021-12-26] MEDS: acetaminophen 325 mg Tablet 650 MG PO (06:56)
[2021-12-26 11:47] LABS: Beta-2-Microglobulin 4.63 mg/L (< OR = 2.51)
[2021-12-26 12:09] LABS: COMPLEMENT, TOTAL (CH50) 43 U/mL (31-60)
[2021-12-26 13:03] LABS: COMPLEMENT COMPONENT C3C 102 mg/dL (82-185); COMPLEMENT COMPONENT C4C 9 mg/dL (15-53)
--- NOTE | 2021-12-26 14:01 | P.DS_ITS ---
Discharge Providers Date of Admission: 12/23/21 17:22 Date of Discharge: December 26, 2021 Attending Provider at Admission: Vijay Arias MD Attending Provider at Discharge: Dale Solano MD Diagnoses at Discharge Discharge Diagnosis (1) Myocarditis: Status: Acute (2) Headache: Status: Acute (3) Rash: Status: Acute (4) Fever: Status: Acute (5) Splenomegaly: Status: Acute (6) Elevated troponin: Status: Acute Reason for Visit Reason for Visit: 15835 Headaches, hallucinations Hospital Course Hospital Course Rio Monk is a 26 year old male with no significant past medical history other other than gout and spinal fusion in for sports related injury in the past was admitted on 12/23 with complaint of feeling sick/ill for last 3 weeks worsening for last 5 days. Patient had subjective fever fever though never checked his fever at home. Complaining of night sweats. Complaining of occipital headache for the last 2 days along with occasional rash which is maculopapular in nature for last 2 to 3 days. Patient denies any sick contacts, recent travels. States his niece recently had an MMR vaccine. Patient admitted to the hospital for further evaluation and management of the above Symptoms. He underwent CT chest abdomen pelvis which are concerning for multiple diffuse lymph adenopathy. On admission given the symptoms there was concern of possible meningitis for which he was started on broad-spectrum antibiotics. During hospitalization his blood cultures and other cultures re main negative. There is a concern given multiple diffuse lymphadenopathy with atypical symptoms for possible leukemia/lymphoma. The above was discussed in detail with the patient along with possible lymph node biopsy. Patient verbalized understanding but requested to be discharged home with follow-up as an outpatient with surgeon for lymph node biopsy. Patient was advised in detail to make sure that he gets a lymph node biopsy and follow-up with his primary care provider within a week to discuss the blood work sent during hospitalization. He is also explained detail regarding danger symptoms. Patient verbalized understanding. Physical Exam Const: COMMON NORMALS: patient oriented x3 HENMT: COMMON NORMALS: normocephalic and atraumatic HEAD & SCALP: normocephalic and atraumatic Chest: CHEST: Yes Symmetrical chest wall rise Resp: COMMON NORMALS: normal respiratory effort, No retractions, No use of accessory muscles and clear to auscultation bilaterally EFFORT & INSPECTION: Yes symmetric chest movement AUSCULTATION: clear to auscultation bilaterally Cardio: COMMON NORMALS: regular rate, regular rhythm, S1 normal heart sound present, S2 normal heart sound present, No gallops present (Cardio), No murmurs present (Cardio), No rub (Cardio) and Peripheral pulses 2+ throughout RATE: regular rate RHYTHM: regular rhythm HEART SOUNDS: S1 normal heart sound present and S2 normal heart sound present PERIPHERAL PULSES: Peripheral pulses 2+ throughout GI: COMMON NORMALS: Normal to inspection, nondistended, normoactive bowel sounds present, Soft to palpation, non-tender, No hepatosplenomegaly present and no masses AUSCULTATION: Yes normoactive bowel sounds PALPATION: Yes Soft to palpation and Yes No hepatosplenomegaly present RECTAL EXAM: Yes deferred Extremity: COMMON NORMALS: no clubbing, cyanosis or edema and no pedal edema Neuro: COMMON NORMALS: patient oriented x3 Skin: OTHER: Generalized erythematous macular rash. Discharge Data Studies Completed and Pending Completed Studies During Hospitalization Category Date Time Status CT abdomen pelvis w con* [id number] Routine Cat Scan 12/24/21 09:[address] cervical spine wo con [CT cervical spin wo con* Cat Scan 12/25/21 10:01 Completed [id number]] Routine CT head wo con* [id number] Stat Cat Scan 12/23/21 14:[address] lumbar spine wo con* [id number] Routine Cat Scan 12/25/21 10:[address] thoracic spine wo con [CT thoracic spin wo con* Cat Scan 12/25/21 10:01 Completed [id number]] Routine CTA chest [CT angio chest PE protcl [id number]] Urgent Cat Scan 12/23/21 17:17 Completed XR chest 1V portable [id number] Stat Exams 12/23/21 14:24 Completed CV. echo complete* [id number] Routine Ultrasound 12/23/21 18:00 Completed Pending at discharge Category Date Time Status PAMELA Profile Rheumatology AM LABS Lab 12/24/21 04:15 Results PAMELA Screen w/ Reflex Routine Lab 12/23/21 15:20 Received Angiotensin Converting Enzyme AM LABS Lab 12/24/21 04:00 Received Blood Culture Stat Lab 12/23/21 17:54 Results CMV IGG&IGM Panel Routine Lab 12/26/21 04:22 Received EBV IGG & IGM Routine Lab 12/26/21 04:22 Received LAB Peripheral Smear Routine Lab 12/26/21 13:23 Ordered Miscellaneous Test Routine Lab 12/23/21 21:28 Received Miscellaneous Test Routine Lab 12/26/21 13:23 Ordered Monoscreen Routine Lab 12/26/21 13:23 Ordered Rubeola (Measles) ABS Stat Lab 12/23/21 15:20 Received Vancomycin Trough Timed Lab 12/27/21 16:00 Ordered MR head wo con* [id number] Routine MRI 12/26/21 08:00 Ordered Radiology Impressions Chest X-Ray 12/23/21 14:24 Impression: Negative chest. Head CT 12/23/21 14:24 IMPRESSION: 1. No acute intracranial abnormality. 2. Right maxillary sinusitis. Chest CTA 12/23/21 17:17 IMPRESSION: 1. Negative for pulmonary embolism. 2. Scattered solid pulmonary nodules in both lungs measuring up to 1.2 cm on the right and 8 mm on the left. There is also diffuse mediastinal, hilar, and axillary adenopathy as well as splenomegaly. There is a broad range of potential etiologies for the above findings. Categorically the most likely etiologies include a lymphoproliferative process such as lymphoma/leukemia, sequela of granulomatous disease such as sarcoidosis, or an autoimmune process. An additional consideration is infectious mononucleosis which can present with ly mphadenopathy and splenomegaly given findings of fever and tonsillitis. Abdomen/Pelvis CT 12/24/21 09:00 IMPRESSION: 1. Hepatosplenomegaly and diffuse hepatic steatosis. 2. Nonspecific lymphadenopathy, as described above. 3. Multiple bibasilar pulmonary nodular densities, measuring up to 8 mm in the left lower lobe. 4. Additional findings, as above. Cervical Spine CT 12/25/21 10:01 IMPRESSION: 1. Moderate right maxillary sinus disease. 2. Cydw-zd-[id number] bilateral submandibular and cervical adenopathy including right base of the neck adenopathy most consistent with reactive adenopathy from infection versus autoimmune process. Neoplasm is considered less likely. Lumbar Spine CT 12/25/21 10:01 IMPRESSION: 1. Mild L5-S1 posterior disc bulge creating anterior impression upon the thecal sac. 2. Moderate posterior L4-L5 disc bulge with short pedicles with mild central spinal stenosis and bilateral lateral recess stenosis. 3. Mild L3-L4 posterior disc bulge with borderline to mild central spinal stenosis. 4. 1.3 cm left para-aortic lymph node consistent with mild nonspecific periaortic lymphadenopathy. Thoracic Spine CT 12/25/21 10:01 IMPRESSION: 1. Gudn-kg-[id number] mediastinal adenopathy consistent with infectious process versus autoimmune process versus lymphoma. 2. No acute spine findings. Laboratory Results WBC 14.0 10^3/uL (4.0-10.0) H 12/26/21 04:22 RBC 4.23 10^6/uL (4.1-5.3) 12/26/21 04:22 Hgb 11.8 g/dL (11.7-16.6) 12/26/21 04:22 Hct 35.1 % (42.0-52.0) L 12/26/21 04:22 MCV 83.0 fl (80-94) 12/26/21 04:22 MCH 27.9 pg (28.0-34.0) L 12/26/21 04:22 MCHC 33.6 g/dL (30.0-36.0) 12/26/21 04: RDW 12.4 % (12.1-15.1) 12/26/21 04:22 Plt Count 84 10^3/cmm (130-400) L D 12/26/21 04:22 MPV 10.8 fL (7.4-10.4) H 12/26/21 04: Neut % (Auto) 56.2 % 12/26/21 04: Lymph % (Auto) 16.6 % 12/26/21 04:22 Cecil % (Auto) 5.4 % 12/26/21 04:22 Eos % (Auto) 20.6 % 12/26/21 04:22 Baso % (Auto) 0.3 % 12/26/21 04:22 Neut # (Auto) 7.87 10^3/uL (1.8-7.7) H 12/26/21 04:22 Lymph # (Auto) 2.3 10^3/uL (0.8-4.8) 12/26/21 04:22 Cecil # (Auto) 0.8 10^3/uL (0.2-0.9) 12/26/21 04:22 Eos # (Auto) 2.9 10^3/uL (0.0-0.8) H 12/26/21 04:22 Baso # (Auto) 0.0 10^3/uL (0.0-0.1) 12/26/21 04:22 Nucleated RBC % (auto) 0 % 12/26/21 04:22 Nucleated RBCs # 0.0 /100WBC 12/26/21 04:22 ESR 29 mm/hr (0-10) H 12/24/21 04:15 PT 15.30 SECONDS (12.1-14.9) H 12/24/21 04:15 INR 1.18 (0.8-1.2) 12/24/21 04:15 D-Dimer 0.81 ug/mIFEU (0-0.59) H 12/23/21 16:24 Sodium 134 mmol/L (136-145) L 12/26/21 04:22 Potassium 3.3 mmol/L (3.5-5.1) L 12/26/21 04:22 Chloride 102 mmol/L (98-107) 12/26/21 04:22 Carbon Dioxide 22 mmol/L (22-29) 12/26/21 04:22 Anion Gap 13.3 (5-19) 12/26/21 04:22 BUN 7 mg/dL (6-20) 12/26/21 04:22 Creatinine 0.9 mg/dL (0.7-1.2) 12/26/21 04:22 GFR Calculation 102.8 mL/min (90-130) 12/26/21 04:22 Glucose 99 mg/dL (65-115) 12/26/21 04:22 Calculated Osmolality 276 mOsm/kg (285-295) L 12/26/21 04:22 Lactic Acid 1.1 mmol/L (0.5-2.2) 12/24/21 04:15 Calcium 8.3 mg/dL (8.5-10.5) L 12/26/21 04:22 Total Bilirubin 0.5 mg/dL (0.15-1.2) 12/26/21 04:22 AST 24 U/L (0-40) 12/26/21 04:22 ALT 18 U/L (0-41) 12/26/21 04:22 Alkaline Phosphatase 57 IU/L (40-130) 12/26/21 04:22 Lactate Dehydrogenase 274 U/L (135-225) H 12/24/21 04:15 Creatine Kinase 72 U/L (39-308) 12/25/21 05:30 Troponin T Baseline 108 ng/L (0-15) H* 12/23/21 15:20 Troponin T 120 Minute 103.2 ng/L (0-15) H 12/23/21 17:47 Delta Troponin T -4.8 ABS# (0-10) L 12/23/21 17:47 Troponin T Hi Sens 6Hr 88.95 ng/L (0-15) H 12/23/21 21:28 Troponin T Hi Sens 6Hr Delta -19.05 ng/L (0-12) L 12/23/21 21:28 C-Reactive Protein 74.9 mg/L (0.0-4.9) H 12/24/21 04:15 Total Protein 7.6 g/dL (6.6-8.7) 12/26/21 04:22 Albumin 3.1 g/dL (3.5-5.2) L 12/26/21 04:22 Globulin 4.5 g/dL (1.3-4.6) 12/26/21 04:22 Xmna-7-[id number] 4.63 mg/L (< OR = 2.51) H 12/23/21 21:28 Tumor Marker AFP 2.1 ng/mL (0-8.3) 12/26/21 04:22 Tumor Marker HCG 1 mIU/mL (0-3) 12/26/21 04:22 Procalcitonin 0.37 ng/mL (0-0.5) 12/24/21 04:15 TSH 4.46 uIU/mL (0.27-4.20) H 12/24/21 04:15 Urine Color Dark yellow (Yellow) 12/23/21 15:14 Urine Appearance Clear (CLEAR) 12/23/21 15:14 Urine pH 5 (5-7) 12/23/21 15:14 Ur Specific [place] 1.025 (1.005-1.030) 12/23/21 15:14 Urine Protein Trace (Negative) 12/23/21 15:14 Urine Glucose (UA) Norm (Normal) 12/23/21 15:14 Urine Ketones Negative (Negative) 12/23/21 15:14 Urine Blood Neg (Negative) 12/23/21 15:14 Urine Nitrate Negative (Negative) 12/23/21 15:14 Urine Bilirubin Neg (Negative) 12/23/21 15:14 Urine Urobilinogen Norm mg/dL (Negative) 12/23/21 15:14 Ur Leukocyte Esterase Negative (Negative) 12/23/21 15:14 Urine RBC 0-4 /hpf (0-2) H 12/23/21 15:14 Urine WBC Rare /hpf (0-5) 12/23/21 15:14 Ur Squamous Epith Cells 0-4 /hpf (0-5) H 12/23/21 15:14 Amorphous Sediment Not Reportable 12/23/21 15:14 Urine Bacteria 1+ /hpf (NONE) H 12/23/21 15:14 Urine Mucus 1+ /hpf 12/23/21 15:14 Urine Sperm 1+ /hpf 12/23/21 15:14 Nasal Influ A H1 2008 PCR Not detected (NOT DETECT) 12/23/21 15:14 Vancomycin Trough 14.8 ug/mL (10-15) 12/25/21 15:53 Urine Opiates Screen Negative ng/mL (Negative) 12/23/21 15:14 Ur Barbiturates Screen Negative ng/mL (Negative) 12/23/21 15:14 Ur Phencyclidine Scrn Negative ng/mL (Negative) 12/23/21 15:14 Ur Amphetamines Screen Negative ng/mL (Negative) 12/23/21 15:14 U Benzodiazepines Scrn Negative ng/mL (Negative) 12/23/21 15:14 Urine Cocaine Screen Negative ng/mL (Negative) 12/23/21 15:14 U Marijuana (THC) Screen Positive ng/mL (Negative) H 12/23/21 15:14 Rheumatoid Factor 10.0 IU/mL (0-14) 12/24/21 04:15 Complement C3c 102 mg/dL (82-185) 12/24/21 04:15 Complement C4c 9 mg/dL (15-53) L 12/24/21 04:15 CH50 Classical Pathway 43 U/mL (31-60) 12/24/21 04:15 Adenovirus (PCR) Not detected (NOT DETECT) 12/23/21 15:14 C. pneumoniae DNA (PCR) Not detected (NOT DETECT) 12/23/21 15:14 Coronavirus 229E (PCR) Not detected (NOT DETECT) 12/23/21 15:14 Hepatitis A IgM Ab Not Reportable 12/23/21 21:28 Hep Bs Antigen Non-reactive (Nonreactive) 12/23/21 21:28 Hep B Core Total Ab Non-reactive (Nonreactive) 12/23/21 21:28 Hepatitis C Antibody Non-reactive (Nonreactive) 12/23/21 21:28 HIV 1&2 Ab & HIV 1 Ag Non-reactive (Non-Reactiv) 12/26/21 04:22 HIV 1&2 Antibody Non-reactive (Non-Reactiv) 12/26/21 04:22 Human Metapneumovir PCR Not detected (NOT DETECT) 12/23/21 15:14 Influenza A (H1) PCR Not detected (NOT DETECT) 12/23/21 15:14 Influenza A (H3) PCR Not detected (NOT DETECT) 12/23/21 15:14 Influenza Type A (PCR) Not detected (NOT DETECT) 12/23/21 15:14 Influenza Type B (PCR) Not detected (NOT DETECT) 12/23/21 15:14 M. pneumoniae (PCR) Not detected (NOT DETECT) 12/23/21 15:14 Parainfluenza 1 (PCR) Not detected (NOT DETECT) 12/23/21 15:14 Parainfluenza 2 (PCR) Not detected (NOT DETECT) 12/23/21 15:14 Parainfluenza 3 (PCR) Not detected (NOT DETECT) 12/23/21 15:14 Parainfluenza 4 (PCR) Not detected (NOT DETECT) 12/23/21 15:14 RSV Type A (PCR) Not detected (NOT DETECT) 12/23/21 15:14 RSV Type B (PCR) Not detected (NOT DETECT) 12/23/21 15:14 Entero/Rhino (PCR) Not detected (NOT DETECT) 12/23/21 15:14 Rubella IgG Antibody > 500.0 IU/mL (0.0-10.0) H 12/23/21 15:20 SARS-CoV-2 (PCR) Not detected (NOT DETECT) 12/23/21 15:14 SARS-CoV-2 Ag (Rapid) Negative (Negative) 12/23/21 15:40 Vitals Last Vital Signs Temp 99.2 F 12/26/21 11:30 Pulse 103 H 12/26/21 11:30 Resp 18 04/18/22 11:30 BP 149/78 12/26/21 11:30 Pulse Ox 97 12/26/21 11:30 Discharge Plan Discharge Patient Disposition: Home Condition: Stable Prescriptions: New Augmentin 500-125 mg tablet 1 tab PO Q12H Qty: 10 0RF doxycycline hyclate 100 mg tablet 100 mg PO Q12H 5 Days Qty: 10 0RF famotidine 20 mg tablet 20 mg PO Q12H Qty: 30 0RF Continued allopurinol 300 mg Tablet 300 mg PO DAILY 0RF Discharge Orders: Discharge Order (Routine); Ordered 12/26/21 Ordered By: Dale Solano Referrals: Destin Ocampo MD [Physician] - 01/06/22 10:00 am (Lymph node biopsy to rule out lymphoma/leukemia) Discharge Diet: Usual diet Discharge Activity: Resume usual activity and Increase activity as tolerated Patient Instructions: Famotidine (By mouth), Doxycycline (By mouth), Amoxicillin/Clavulanate Potassium (By mouth), Enlarged Spleen (GEN), High Troponin Levels (GEN), Opioid Safety Activity Restrictions/Additional Instructions: Please follow-up with surgeon as discussed in detail for lymph node biopsy to rule out lymphoma/leukemia. Please follow-up with your primary care provider within the next 1 week for further discussion and follow-up for blood work done during hospitalization. Again if you have fever of more than 101.4 Fahrenheit, difficulty breathing, dizziness please present to the ER. Discharge Attestations Time Spent in Discharge Care*: greater than 30 min Specific Discharge Activities: educating patient, educating and/or supporting family/caregiver, discussing with pcp/other providers, discussing with adult protective caseworker/social workers/dc planners, documenting/other paperwork and evaluating patient/reviewing data Status at Discharge: Cognitive status at discharge: cognitively intact , Behavioral status at discharge: cooperative , Functional status at discharge: independent ambulation , Overall status at discharge: patient is not back to baseline Quality Metrics Clinical Quality Measures [ No reported AMI, CVA or VTE this stay] Coding Level of Care Code Acute Chg FW DC note Exam Detailed Diagnoses Myocarditis I51.4 Headache R51.9 Rash R21 Fever R50.9 Splenomegaly R16.1 Elevated troponin R77.8
[2021-12-26 14:24] LABS: Monoscreen Negative (Negative)
[2021-12-26 15:00] LABS: LAB Peripheral Smear Sent for Review
--- NOTE | 2021-12-26 15:28 | PC.NURSE ---
Discussed discharge with Patient and spouse. All questions answered. Patient is able to return to work per Dr. Coley. Follow up appointments and medications gone over.
[2021-12-26 16:08] LABS: Hepatitis A Antibody Total NON-REACTIVE (NON-REACTIVE)
[2021-12-26 16:42] LABS: Anti-Nuclear Antibody Screen NEGATIVE (NEGATIVE)
[2021-12-27 13:07] LABS: EBV IGM TEST <36.00 U/mL
[2021-12-27 14:02] LABS: CENTROMERE B ANTIBODY <1.0 NEG AI (<1.0 NEG); JO-1 ANTIBODY <1.0 NEG AI (<1.0 NEG); RNP ANTIBODY <1.0 NEG AI (<1.0 NEG); SCL-70 ANTIBODY <1.0 NEG AI (<1.0 NEG); SJOGREN'S ANTIBODY (SS-A) <1.0 NEG AI (<1.0 NEG); SM ANTIBODY <1.0 NEG AI (<1.0 NEG); SS-B <1.0 NEG AI (<1.0 NEG)
[2021-12-27 14:33] LABS: Cytomegalovirus Antibody (IGG) <0.60 U/mL; Cytomegalovirus Antibody (IGM) <30.00 AU/mL
[2021-12-27 15:42] LABS: ANA SCREEN, IFA NEGATIVE (NEGATIVE)
[2021-12-27 15:54] LABS: THYROID PEROXIDASE ANTIBODIES 1 IU/mL (<9)
[2021-12-28 14:55] LABS: Leukemia Profile (BBPL) See Report; Lymphoma Profile (BBPL) See Report
[2021-12-28 17:02] LABS: DNA AB (DS) CRITHIDIA,IFA NEGATIVE (NEGATIVE)
== END 2021-12-26 15:53 | disposition home or self-care (01) | DRG 316 ==
LOC: ER 14:27 → MEDSURG 18:12
PROVIDERS: Admitting Provider Internal Medicine; Emergency Provider Emergency Medicine; Visit Provider Student in an Organized Health Care Education/Training Program
DX: I51.4 Myocarditis, unspecified (principal); R21 Rash and other nonspecific skin eruption; M10.9 Gout, unspecified; R16.1 Splenomegaly, not elsewhere classified; R77.8 Other specified abnormalities of plasma proteins; R59.0 Localized enlarged lymph nodes; Z98.1 Arthrodesis status
CPT/HCPCS: 36415; 70450; 71045; 71275; 72125; 72128; 72131; 74177; 80053; 80202; 80306; 80503; 81001; 82105; 82164; 82232; 82550; 83605; 83615; 84145; 84443; 84484; 84702; 85025; 85378; 85610; 85651; 86038; 86140; 86160; 86162; 86235; 86255; 86308; 86376; 86431; 86664; 86665; 86704; 86708; 86709; 86762; 86765; 86803; 87040; 87340; 87426; 87486; 87581; 87633; 87806; 88184; 88185; 93005; 93306; 96361; 96372; 96374; 96375; 99285; J0696; J1200; J1650; J2405; J2765; J3370; J3490; J7030; Q0163; Q9967